=== PATIENT | female | born 2000 | race Hispanic/Latino ===

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

== ENCOUNTER 2022-01-26 09:18 | Emergency (ER) | payer OTHER ==
[2022-01-26] MEDS ORDERED: Boostrix 0.5 ML (Tdap) VIAL ONE (11:03)
[2022-01-26] MEDS ORDERED: Ibuprofen 200 MG TAB ONE (11:03)
== END 2022-01-26 11:26 | disposition home or self-care (01) ==
LOC: CSHERS 09:18
DX: S50.12XA Contusion of left forearm, initial encounter (principal); Z23 Encounter for immunization; V49.9XXA Car occupant (driver) (passenger) injured in unspecified traffic accident, initial encounter
CPT/HCPCS: 90471; 90715